=== PATIENT | female | born 1980 | race Hispanic/Latino ===

== ENCOUNTER 2017-05-16 12:52 | Outpatient (CLI) | payer OTHER | END 2017-05-16 14:30 | disposition home or self-care (01) | LOC: MAMMO 12:52 | DX: N63 Unspecified lump in breast (principal) | CPT/HCPCS: G0204-TC ==

== ENCOUNTER → 2017-10-17 09:28 | Outpatient (CLI) | payer OTHER | END | disposition home or self-care (01) | LOC: MAMMO 09:28 | DX: N63.20 Unspecified lump in the left breast, unspecified quadrant (principal); R92.8 Other abnormal and inconclusive findings on diagnostic imaging of breast ==

== ENCOUNTER 2018-11-04 08:51 | Outpatient (CLI) | payer OTHER | END 2018-11-04 19:39 | disposition home or self-care (01) | LOC: MAMMO 08:51 | DX: R92.2 Inconclusive mammogram (principal) ==

== ENCOUNTER 2020-06-15 09:52 | Outpatient (CLI) | payer OTHER | END 2020-06-15 20:26 | disposition home or self-care (01) | LOC: MAMMO 09:52 | DX: Z12.31 Encounter for screening mammogram for malignant neoplasm of breast (principal) ==

== ENCOUNTER 2021-07-08 08:24 | Outpatient (CLI) | payer OTHER | END 2021-07-08 19:53 | disposition home or self-care (01) | LOC: MAMMO 08:24 | PROVIDERS: ATTEND Internal Medicine | DX: Z12.31 Encounter for screening mammogram for malignant neoplasm of breast (principal) ==

== ENCOUNTER 2022-07-24 10:30 | Outpatient (CLI) | payer OTHER | END 2022-07-24 19:34 | disposition home or self-care (01) | LOC: MAMMO 10:30 | PROVIDERS: ATTEND Internal Medicine | DX: Z12.31 Encounter for screening mammogram for malignant neoplasm of breast (principal) ==